=== PATIENT | female | born 1950 | race Caucasian/White ===

== ENCOUNTER 2020-05-25 14:53 | Outpatient (REF) | payer MEDICARE, MEDICAID, SELFPAY | END 2020-05-25 14:54 | disposition home or self-care (01) | LOC: HO.LAB 14:53 | PROVIDERS: Visit Provider Internal Medicine | DX: Z20.828 Contact with and (suspected) exposure to other viral communicable diseases (principal) | CPT/HCPCS: C9803; U0003 ==

== ENCOUNTER 2020-06-10 13:55 | Outpatient (REF) | payer MEDICARE, MEDICAID, SELFPAY | END 2020-06-10 13:56 | disposition home or self-care (01) | LOC: HO.LAB 13:55 | PROVIDERS: PCP Nurse Practitioner Family; Visit Provider Internal Medicine | DX: Z20.822 Contact with and (suspected) exposure to COVID-19 (principal) | CPT/HCPCS: 36415; C9803; U0003 ==